=== PATIENT | male | born 2000 | race Two or more races ===

== ENCOUNTER 2024-01-25 08:49 | Emergency (ER) | payer SELFPAY ==
[~2024-01-25] VITALS: Ht 172.7 cm; Wt 59.0 kg
[2024-01-25 08:56] VITALS: BP 119/82; PULSE 68; RESP 16; TEMP 98; O2SAT 100
[2024-01-25] MEDS ORDERED: IBUP-2029 MT (09:25)
[2024-01-25] MEDS ORDERED: METH-653 MT (09:25)
[2024-01-25] MEDS: IBUPROFEN 600MG TABLET PO ONE (10:02)
[2024-01-25] MEDS: METHOCARBAMOL 500MG TABLET PO ONE (10:03)
== END 2024-01-25 10:27 | disposition home or self-care (01) ==
LOC: ER 08:49
DX: S33.5XXA Sprain of ligaments of lumbar spine, initial encounter (principal); J45.909 Unspecified asthma, uncomplicated; X58.XXXA Exposure to other specified factors, initial encounter; Y93.89 Activity, other specified; Y92.89 Other specified places as the place of occurrence of the external cause; Y99.8 Other external cause status
CPT/HCPCS: 72100; 99283